=== PATIENT | female | born 1945 | race Caucasian/White ===

== ENCOUNTER → 2017-02-04 | Outpatient (CLI) | payer BC ==
[2016-02-03 08:58] VITALS: BP 163/81
[~2017-02-04] MED LIST: AMLO2.5T PO; LORA0.5T PO; METO100T2 PO; METO50TA2 PO; OMEP40CA5 PO
--- NOTE | 2017-02-04 11:40 | KCIC ---
PROCEDURE Bone mineral density exam HISTORY Postmenopausal, adult fracture COMPARISON None FINDINGS Bone mineral density exam utilizing DEXA was performed. Lumbar spine bone mineral density of 1.14 grams/centimeter squared corresponds with a T-score 0.6 and a Z-score 2.7. Left hip bone mineral density of 0.835 grams/centimeter squared corresponds with T-score-0.9 and a Z-score 0.6. World Health Organization criteria for bone mineral density interpretation: Normal T-score greater than or equal to-1.0, Osteopenia T score between-1.0 and-2.5, Osteoporosis T-score less than or equal to-2.5. IMPRESSION 1. There is normal bone density of the lumbar spine and the left hip. Electronically signed by: Selvin Mercado MD (Feb 04, 2017 11:38:27)
== END | disposition home or self-care (01) ==
LOC: KCIC DEXA 10:55
PROVIDERS: ATTEND Family Medicine
DX: Z13.820 Encounter for screening for osteoporosis (principal); N95.9 Unspecified menopausal and perimenopausal disorder; M85.88 Other specified disorders of bone density and structure, other site
CPT/HCPCS: 77080

== ENCOUNTER → 2017-04-21 | Outpatient (CLI) | payer BC ==
[2016-02-03 08:58] VITALS: BP 163/81
--- NOTE | 2017-04-21 14:21 | KCIC ---
EXAM: Chest, 2 views. HISTORY: Left lower lobe rales. COMPARISON: None. FINDINGS: Frontal and lateral views of the chest are obtained. There is suspected left basilar atelectasis. There is no infiltrate, effusion or pneumothorax. The heart is normal in size. IMPRESSION: No acute pulmonary finding. Electronically signed by: Dotty Hunter MD (04/21/2017 2:19 PM)
== END | disposition home or self-care (01) ==
LOC: KCIC 13:53
PROVIDERS: ATTEND Family Medicine
DX: R09.89 Other specified symptoms and signs involving the circulatory and respiratory systems (principal); Z87.891 Personal history of nicotine dependence
CPT/HCPCS: 71020

== ENCOUNTER → 2019-02-03 | Outpatient (CLI) | payer MEDICARE ==
[2016-02-03 08:58] VITALS: BP 163/81
[~2019-02-03] MED LIST changes: -AMLO2.5T PO; +AMLO2.5T5 PO; -METO100T2 PO; +METO100T7 PO; -METO50TA2 PO; +METO50TA6 PO
--- NOTE | 2019-02-03 13:47 | KCIC ---
EXAM: Chest, 2 views HISTORY: Cough. COMPARISON: 04/21/2017 FINDINGS: 2 views of the chest are obtained. There is no infiltrate, pleural effusion or pneumothorax. Heart is normal in size. IMPRESSION: No acute pulmonary finding. Electronically signed by: Dotty Hunter MD (02/03/2019 1:44 PM) [facility]
== END | disposition home or self-care (01) ==
LOC: KCIC 12:29
PROVIDERS: ATTEND Family Medicine
DX: R05 Cough (principal)
CPT/HCPCS: 71046

== ENCOUNTER → 2019-08-02 | Outpatient (CLI) | payer BC, OTHER ==
[2019-07-28 12:16] VITALS: BP 150/78
[~2019-08-02] MED LIST changes: +ATOR40TA59 PO; +CETI10TA16 PO; +GLUC100018 PO; +HYDR25TA PO; +OMEG1CAP6 PO; +PRAS10TA9 PO; +TURM1TAB PO
--- NOTE | 2019-08-02 13:10 | KCIC ---
EXAM: Bilateral digital screening mammogram with tomosynthesis. HISTORY: 74-year-old female presents for screening mammography. TECHNIQUE: Full-field digital craniocaudal and mediolateral oblique 2D and 3D tomosynthesis images of both breasts are obtained for evaluation. Computer aided detection with KudanD software version 9.3 was applied. COMPARISON: 07/27/2018 and 06/26/2016 BREAST PARENCHYMAL DENSITY: Level B - Scattered fibroglandular densities. FINDINGS: There is no new suspicious mass, microcalcification or region of architectural distortion. IMPRESSION: BI-RADS Category 2: Benign finding(s). RECOMMENDATION: Annual mammography is recommended. If your mammogram demonstrates that you have dense breast tissue, which could hide abnormalities, and if you have other risk factors for breast cancer that have been identified, you might benefit from supplemental screening tests that may be suggested by your ordering physician. Dense breast tissue, in and of itself, is a relatively common condition. This information is not provided to cause undue concern, but rather to raise your awareness and to promote discussion with your physician regarding the presence of other risk factors, in addition to dense breast tissue. A report of your mammography results will be sent to you and your physician. You should contact your physician if you have any questions or concerns regarding this report. Mammography is a sensitive method for finding small breast cancers, but it does not detect them all and is not a substitute for careful clinical examination. A negative mammogram does not negate a clinically suspicious finding and should not result in delay in biopsying a clinically suspicious abnormality. PQRS compliance statement - Patient information was entered into a reminder system with a target due date for the next mammogram. "Our facility is accredited by the [employer] Mammography Program." Electronically signed by: Dotty Hunter MD (08/02/2019 1:07 PM) [facility]
== END | disposition home or self-care (01) ==
LOC: KCIC MAMMO 11:34
PROVIDERS: ATTEND Family Medicine
DX: Z12.31 Encounter for screening mammogram for malignant neoplasm of breast (principal)
CPT/HCPCS: 77063; 77067

== ENCOUNTER 2019-08-06 10:44 | Inpatient (IN) | payer MEDICARE, OTHER ==
[~2019-08-06] VITALS: Ht 160 cm; Wt 99.8 kg
[~2019-08-06 10:44] MED LIST changes: +OMEP40CA45 PO; -OMEP40CA5 PO
[2019-08-06 11:23] LABS: BASO # 0.1 x10^3/uL (0.0-0.2); BASO % 1 % (0-3); EOS % 0 % (0-3); HEMATOCRIT 42.5 % (36.0-47.0); HEMOGLOBIN 14.4 g/dL (12.0-15.5); LYMPH # 1.2 x10^3/uL (1.0-4.8); LYMPH % 8 % (24-48); MEAN CORPUSCULAR HEMOGLOBIN 29 pg (25-35); MEAN CORPUSCULAR HGB CONC 34 g/dL (31-37); MEAN CORPUSCULAR VOLUME 86 fL (79-100); MONO # 0.9 x10^3/uL (0.0-1.1); MONO % 6 % (0-9); NEUT # 13.1 x10^3/uL (1.8-7.7); NEUT % 86 % (31-73); PLATELET COUNT 215 x10^3/uL (140-400); RED BLOOD COUNT 4.91 x10^6/uL (3.50-5.40); RED CELL DISTRIBUTION WIDTH 15.3 % (11.5-14.5); WHITE BLOOD COUNT 15.3 x10^3/uL (4.0-11.0)
[2019-08-06] MEDS ORDERED: ONDANSETRON PF 4 MG/2 ML VIAL. IV ONE (11:30)
[2019-08-06] MEDS ORDERED: IV NORMAL SALINE 1000ML BAG 1,000 ML IV SCH (11:30)
[2019-08-06 11:38] LABS: CALCIUM 9.1 mg/dL (8.5-10.1); CREATININE 1.6 mg/dL (0.6-1.0); GFR 31.7; POTASSIUM 3.4 mmol/L (3.5-5.1)
[2019-08-06 11:51] LABS: ALBUMIN 3.4 g/dL (3.4-5.0); ALBUMIN/GLOBULIN RATIO 0.9 (1.0-1.7); TOTAL BILIRUBIN 0.3 mg/dL (0.2-1.0); TOTAL PROTEIN 7.3 g/dL (6.4-8.2)
--- NOTE | 2019-08-06 11:57 | PHYS DOC ---
Past Medical History Past Medical History: CAD, GERD, Hypertension Additional Past Medical Histor: NSTEMI on 07/27/19 Past Surgical History: Other Additional Past Surgical Histo: Left ankle repair, cardiac stent Alcohol Use: None Drug Use: None Adult General Chief Complaint Chief Complaint: SHORTNESS OF BREATH HPI HPI Patient is a 74 year old female who presents with complaining of diarrhea and weakness. Patient states she was hospitalized 10 days ago and had stent placeme nt for NSTEMI without problem. Patient complaining of frequent episodes of diarrhea more than 15 times since yesterday as watery and nonbloody stool with greenish color and foul smelling with episodes of abdominal cramping during bowel movements. Patient complaining of nausea and one episode of vomiting since this morning and states during vomiting she felt shortness of breath. Patient denies chest pain, fever, sick contact, urinary symptom, recent use of antibiotic and history of C diff. Review of Systems Review of Systems Constitutional: Denies fever, reports chills [] Eyes: Denies change in visual acuity, redness, or eye pain [] HENT: Denies nasal congestion or sore throat [] Respiratory: Denies cough, reports shortness of breath [] Cardiovascular: No additional information not addressed in HPI [] GI: Reports abdominal pain, nausea, vomiting, diarrhea [] : Denies dysuria or hematuria [] Musculoskeletal: Denies back pain or joint pain [] Integument: Denies rash or skin lesions [] Neurologic: Denies headache, focal weakness or sensory changes [] Endocrine: Denies polyuria or polydipsia [] All other systems were reviewed and found to be within normal limits, except as documented in this note. Current Medications Current Medications Current Medications Medications (Trade) Dose Ordered Sig/Toribio Start Time Stop Time Status Last Admin Dose Admin Magnesium Sulfate 50 ml @ 25 mls/hr 1X ONCE 08/06/19 13:15 08/06/19 15:14 DC 08/06/19 13:30 25 MLS/HR Ondansetron HCl (Zofran) 4 mg 1X ONCE 08/06/19 11:30 08/06/19 11:31 DC 08/06/19 11:25 4 MG Sodium Chloride 1,000 ml @ 75 mls/hr [id number] 08/06/19 13:54 08/07/19 13:53 08/06/19 14:19 75 MLS/HR Allergies Allergies Allergies Coded Allergies Type Severity Reaction Last Updated Verified latex Allergy Unknown Rash 02/03/16 Yes Physical Exam Physical Exam Constitutional: Well developed, well nourished, mild distress, non-toxic appearance. [] HENT: Normocephalic, atraumatic, dry oral mucosa. Eyes: PERRLA, EOMI, conjunctiva normal, no discharge. [] Neck: Normal range of motion, no tenderness, supple, no stridor. [] Cardiovascular:Heart rate regular rhythm, no murmur [] Lungs & Thorax: Bilateral rales in bases of lung Abdomen: Bowel sounds normal, soft, no tenderness, no masses, no pulsatile masses. [] Skin: Warm, dry, no erythema, no rash. [] Back: No tenderness, no CVA tenderness. [] Extremities: No tenderness, no cyanosis, no clubbing, ROM intact, no edema. [] Neurologic: Alert and oriented X 3, no focal deficits noted. [] Psychologic: Affect normal, judgement normal, mood normal. [] Current Patient Data Vital Signs Vital Signs Date Time Temp Pulse Resp B/P (MAP) Pulse Ox O2 Delivery O2 Flow Rate FiO2 08/06/19 15:58 70 18 130/59 (82) Nasal Cannula 2.0 08/06/19 12:31 94 08/06/19 10:55 98.9 98.9 Lab Values Laboratory Tests Test 08/06/19 11:10 08/06/19 12:19 08/06/19 13:11 White Blood Count 15.3 x10^3/uL (4.0-11.0) H Red Blood Count 4.91 x10^6/uL (3.50-5.40) Hemoglobin 14.4 g/dL (12.0-15.5) Hematocrit 42.5 % (36.0-47.0) Mean Corpuscular Volume 86 fL (79-100) Mean Corpuscular Hemoglobin 29 pg (25-35) Mean Corpuscular Hemoglobin Concent 34 g/dL (31-37) Red Cell Distribution Width 15.3 % (11.5-14.5) H Platelet Count 215 x10^3/uL (140-400) Neutrophils (%) (Auto) 86 % (31-73) H Lymphocytes (%) (Auto) 8 % (24-48) L Monocytes (%) (Auto) 6 % (0-9) Eosinophils (%) (Auto) 0 % (0-3) Basophils (%) (Auto) 1 % (0-3) Neutrophils # (Auto) 13.1 x10^3/uL (1.8-7.7) H Lymphocytes # (Auto) 1.2 x10^3/uL (1.0-4.8) Monocytes # (Auto) 0.9 x10^3/uL (0.0-1.1) Eosinophils # (Auto) 0.0 x10^3/uL (0.0-0.7) Basophils # (Auto) 0.1 x10^3/uL (0.0-0.2) Segmented Neutrophils % 52 % (35-66) Band Neutrophils % 37 % (0-9) H Lymphocytes % 7 % (24-48) L Monocytes % 4 % (0-10) Platelet Estimate Adequate (ADEQUATE) Large Platelets Few Sodium Level 136 mmol/L (136-145) Potassium Level 3.4 mmol/L (3.5-5.1) L Chloride Level 99 mmol/L (98-107) Carbon Dioxide Level 22 mmol/L (21-32) Anion Gap 15 (6-14) H Blood Urea Nitrogen 20 mg/dL (7-20) Creatinine 1.6 mg/dL (0.6-1.0) H Estimated GFR (Cockcroft-Gault) 31.7 BUN/Creatinine Ratio 13 (6-20) Glucose Level 153 mg/dL (70-99) H Lactic Acid Level 2.0 mmol/L (0.4-2.0) Calcium Level 9.1 mg/dL (8.5-10.1) Magnesium Level 1.3 mg/dL (1.8-2.4) L Total Bilirubin 0.3 mg/dL (0.2-1.0) Aspartate Amino Transferase (AST) 31 U/L (15-37) Alanine Aminotransferase (ALT) 24 U/L (14-59) Alkaline Phosphatase 111 U/L (46-116) Creatine Kinase 369 U/L (26-192) H Troponin I Quantitative < 0.017 ng/mL (0.000-0.055) OY-Nfl-A-Type Natriuretic Peptide 1751 pg/mL (0-124) H Total Protein 7.3 g/dL (6.4-8.2) Albumin 3.4 g/dL (3.4-5.0) Albumin/Globulin Ratio 0.9 (1.0-1.7) L Lipase 104 U/L (73-393) Stool Occult Blood Positive (NEG) Urine Collection Type Unknown Urine Color Yellow Urine Clarity Cloudy Urine pH 6.0 Urine Specific [place] >=1.030 Urine Protein 100 mg/dL (NEG-TRACE) Urine Glucose (UA) 100 mg/dL (NEG) Urine Ketones (Stick) Trace mg/dL (NEG) Urine Blood Negative (NEG) Urine Nitrite Negative (NEG) Urine Bilirubin Small (NEG) Urine Urobilinogen Dipstick 1.0 mg/dL (0.2 mg/dL) Urine Leukocyte Esterase Trace (NEG) Urine RBC 1-2 /HPF (0-2) Urine WBC 5-10 /HPF (0-4) Urine Squamous Epithelial Cells Many /LPF Urine Bacteria Many /HPF (0-FEW) Urine Hyaline Casts Many /HPF Urine Mucus Marked /LPF Laboratory Tests 08/06/19 11:10 Laboratory Tests 08/06/19 11:10 EKG EKG EKG interpreted by me. EKG at 1058 showed normal sinus rhythm at rate of 80, prolonged GA interval at 226, left woody axis, Q wave in inferior leads, T-wave abnormalities in anterior leads, no acute ST and T-wave abnormalities.[] Radiology/Procedures Radiology/Procedures [] Course & Med Decision Making Course & Med Decision Making Pertinent Labs reviewed. (See chart for details) Evaluation of patient in ER showed 74-year-old male patient with history of hospitalization recently for non-STEMI and stent placement with complaining of diarrhea and nausea and vomiting and cramping abdominal pain. Patient had stable vital signs without fever. Patient had white count of 15,000 and magnesium of 1.3 and treated with IV magnesium.Patient requiring admission for further evaluation and treatment. Discussed with Dr. Reed Mukherjee who is in agreement with admission. Discussed findings and plan with patient and family, who acknowledge understanding and agreement. Dragon Disclaimer Dragon Disclaimer This electronic medical record was generated, in whole or in part, using a voice recognition dictation system. Departure Departure Impression: Primary Impression: Diarrhea Additional Impressions: Hypomagnesemia Leukocytosis Acute renal insufficiency CHF (congestive heart failure) Disposition: ADMITTED INPATIENT (@1348) Admitting Physician: Reed Mukherjee (accepted admission at 1347) Condition: IMPROVED Referrals: REED MUKHERJEE MD (PCP) Problem Qualifiers Primary Impression: Diarrhea Diarrhea type: unspecified type Qualified Codes: R19.7 - Diarrhea, unspecified Additional Impressions: Leukocytosis Leukocytosis type: unspecified Qualified Codes: D72.829 - Elevated white blood cell count, unspecified CHF (congestive heart failure) Heart failure type: unspecified Heart failure chronicity: unspecified Qualified Codes: I50.9 - Heart failure, unspecified WENDY MONTOYA MD Aug 06, 2019 11:57
[2019-08-06 12:10] LABS: % BANDS 37 % (0-9); % LYMPHS 7 % (24-48); % MONOS 4 % (0-10); % SEGS 52 % (35-66); PLT ESTIMATE ADEQUATE (ADEQUATE)
--- NOTE | 2019-08-06 12:22 | EKG ---
[facility] [address] [place] [address] Test Date: 2019-08-06 Test Time: 10:58:31 Pat Name: RACHEL MEZA Department: Room: Gender: F [employer] Specialist: : [id number] Requested By: WENDY MONTOYA Order Number: [id number] Reading MD: Riccardo Mesa MD Measurements Intervals [place] Rate: 79 P: 22 FL: 226 QRS: -23 QRSD: 82 T: 51 QT: 394 QTc: 458 Interpretive Statements SINUS RHYTHM PROLONGED FL INTERVAL NON-SPECIFIC ST/T CHANGES Electronically Signed On 08-20-2019 21:20:11 CDT by Riccardo Mesa MD
[2019-08-06 12:48] LABS: FECAL OB PT POSITIVE (NEG)
[2019-08-06] MEDS ORDERED: MAGNESIUM SULFATE 2GM 50 ML IV ONE (13:15)
[2019-08-06 13:19] LABS: BILIRUBIN,URINE SMALL (NEG); CLARITY,URINE CLOUDY; NITRITE,URINE NEGATIVE (NEG); PROTEIN,URINE 100 mg/dL (NEG-TRACE)
[2019-08-06 13:21] LABS: COLOR,URINE YELLOW
[2019-08-06 13:22] LABS: BACTERIA,URINE MANY /HPF (0-FEW); HYALINE CASTS, URINE MANY /HPF; SQUAMOUS EPITHELIAL CELL,UR MANY /LPF
[2019-08-06] MEDS: IV NORMAL SALINE 1000ML BAG 1,000 ML IV SCH ×2 (14:19→19:43)
[2019-08-06 16:40] VITALS: BP 126/47
--- NOTE | 2019-08-06 17:00 | NUR ---
The patient, RACHEL MEZA, 74 y/o, F admitted by STANLEY MUKHERJEE MD, was given written information regarding hospital policies, unit procedures and contact persons. Completed admission assessment. Pt stated she would keep all belongings at bedside including clothing, purse and cell phone. IVF infusing. SCD's placed. Assisted pt to bathroom. Meal tray ordered. Call light within reach. Will return to monitor.
[2019-08-06] MEDS ORDERED: IV NORMAL SALINE 1000ML BAG 1,000 ML IV ONE (18:30)
--- NOTE | 2019-08-06 18:47 | NUR ---
Paged Dr. Grande. Lactic increased to 3.2. Initiated second NS bolus. Dr. Grande did not want to start any antibiotics until he had results from c.diff test. Viry INTERNATIONAL EDITORIAL PRODUCER placed orders for blood cultures and lactic to be redrawn. Updated pt of POC. Call light within reach. Will continue to monitor.
[2019-08-06 19:00] VITALS: BP 139/64
[2019-08-06] MEDS: METOPROLOL TART IMMED RELEASE 50 MG TABLET. PO SCH (21:10)
[2019-08-06] MEDS: ATORVASTATIN CALCIUM 40 MG TABLET. PO SCH (21:10)
[2019-08-06] MEDS: LORazepam 0.5 MG TABLET PO SCH (22:17)
[2019-08-06 23:00] VITALS: BP 132/57
[2019-08-07 03:00] VITALS: BP 124/57
[2019-08-07 07:30] VITALS: BP 115/56
--- NOTE | 2019-08-07 08:18 | PDOC ---
Provider Note Provider Note [id number] STANLEY MUKHERJEE MD Aug 07, 2019 08:17
[2019-08-07] MEDS: PRASUGREL 10 MG TABLET. PO SCH (08:23)
[2019-08-07] MEDS: amLODIPine BESYLATE 5 MG TABLET PO SCH (08:24)
[2019-08-07] MEDS: METOPROLOL TART IMMED RELEASE 50 MG TABLET. PO SCH ×2 (08:25→19:51)
[2019-08-07] MEDS: PANTOPRAZOLE 40 MG TABLET.DR. PO SCH (08:25)
--- NOTE | 2019-08-07 08:29 | HP ---
ADMIT DATE: CHIEF COMPLAINT: Diarrhea and weakness. HISTORY OF PRESENT ILLNESS: A 74-year-old white female recently discharged after a single coronary artery stent placement for a aiv-CO-bcennhhl PA, has had good results since then. New meds include aspirin and Effient and metoprolol, but no recent antibiotics or travel exposure to new foods or ill people. She developed nonbloody diarrhea about 36 hours or so prior to admission and became increasingly worse over the next 12-24 hours. She had a low-grade temperature or mild leukocytosis with left shift and heme-positive stool, was admitted with C. diff toxin pending at this time. No recent travel. No well water exposure or other obvious sources of diarrhea are apparent and her is not ill. MEDICATIONS: Listed per the chart. New meds are atorvastatin, Effient, aspirin and metoprolol. She has a history of mild hives, chronic anxiety and insomnia. SOCIAL HISTORY: Nonsmoker, nondrinker. FAMILY HISTORY: Unremarkable. REVIEW OF SYSTEMS: No other known problems. OBJECTIVE: ENT: All within normal limits. NECK: Revealed no masses, nodes or bruits. LUNGS: Clear, without tachypnea. CARDIOVASCULAR: Regular rate. No murmur or tachycardia. ABDOMEN: Soft, benign, nontender, no masses, megaly or nodes. EXTREMITIES: Good pedal and radial pulses. No joint or skin lesions or nail bed findings. NEUROLOGIC: Physiologic and nonfocal, oriented x 4. GENITOURINARY AND RECTAL: Deferred. Stool was heme positive in the ER. ASSESSMENT: Acute onset of diarrhea, heme positive in nature, associated with mild leukocytosis and left shift. Source of this is unclear. Certainly must include C. diff toxin colitis, though we do not know that she has had any recent antibiotics lately. There has been no recent travel, exposure to illness, new foods. PLAN: Stool culture and Giardia antigen. We will start metronidazole pending C. difficile toxin results. IV fluids, potassium support and continue her cardiac meds. STANLEY MUKHERJEE MD DR: CRUZ/kleber JOB#: [id number] / [id number]
[2019-08-07] MEDS: POTASSIUM CL 20MEQ D5-0.45NACL 1,000 ML IV SCH ×2 (08:51→19:52)
[2019-08-07] MEDS ORDERED: NON FORMULARY ITEM (Glucosamine Sulfate 2KCL (Glucosamine) 1,000 MG) PO SCH (09:00)
[2019-08-07] MEDS ORDERED: CETIRIZINE HCL 10 MG TABLET. PO SCH (09:00)
[2019-08-07] MEDS ORDERED: ASPIRIN 325 MG TABLET PO SCH (09:00)
[2019-08-07] MEDS ORDERED: [UNRECOGNIZED DRUG - OTHER] PO SCH (09:00)
[2019-08-07] MEDS ORDERED: ATORVASTATIN CALCIUM 40 MG TABLET. PO SCH (09:00)
[2019-08-07] MEDS: ASPIRIN CHEWABLE 81 MG TABLET. PO SCH (10:14)
[2019-08-07 11:37] VITALS: BP 105/46
--- NOTE | 2019-08-07 15:06 | NUR ---
SW following pt for dc planning. Chart reviewed. Pt lives at home with spouse and admitted for diarrhea hypomagnesemia. PT recommends home with assistance/when goals met. Will continue to follow pending dc needs.
[2019-08-07 15:35] VITALS: BP 128/57
[2019-08-07] MEDS: ATORVASTATIN CALCIUM 40 MG TABLET. PO SCH (19:51)
[2019-08-07 19:57] VITALS: BP 130/51
[2019-08-07] MEDS ORDERED: hydrOXYzine 25 MG TABLET PO SCH (21:00)
[2019-08-07 23:59] VITALS: BP 124/57
[2019-08-08 04:47] LABS: BASO % 1 % (0-3); EOS # 0.1 x10^3/uL (0.0-0.7); EOS % 1 % (0-3); HEMATOCRIT 33.7 % (36.0-47.0); HEMOGLOBIN 11.6 g/dL (12.0-15.5); LYMPH % 26 % (24-48); MEAN CORPUSCULAR HEMOGLOBIN 30 pg (25-35); MEAN CORPUSCULAR HGB CONC 34 g/dL (31-37); MEAN CORPUSCULAR VOLUME 87 fL (79-100); MONO # 1.2 x10^3/uL (0.0-1.1); MONO % 17 % (0-9); NEUT # 4.2 x10^3/uL (1.8-7.7); NEUT % 56 % (31-73); PLATELET COUNT 193 x10^3/uL (140-400); RED BLOOD COUNT 3.88 x10^6/uL (3.50-5.40); RED CELL DISTRIBUTION WIDTH 15.4 % (11.5-14.5); WHITE BLOOD COUNT 7.5 x10^3/uL (4.0-11.0)
[2019-08-08] MEDS: POTASSIUM CL 20MEQ D5-0.45NACL 1,000 ML IV SCH ×2 (05:12→19:43)
[2019-08-08 07:55] VITALS: BP 122/56
[2019-08-08] MEDS ORDERED: ASPIRIN CHEWABLE 81 MG TABLET. PO SCH (08:00)
--- NOTE | 2019-08-08 08:15 | PDOC ---
Provider Note Provider Note no temp or pain but still lots of nonbloody diarrhea- heme + on admit- c diff neg , cult pending- will dc flagyl and add cipro to cover shig/salmonella/campylobacter pending culture- adv diet- NEEDS TO BE IN HOSPITAL until clear dx is made, at trisk re recent NV/stent STANLEY MUKHERJEE MD Aug 08, 2019 08:15
[2019-08-08] MEDS: ASPIRIN CHEWABLE 81 MG TABLET. PO SCH (08:58)
[2019-08-08] MEDS: CIPROFLOXACIN HCL 250 MG TABLET. PO SCH ×2 (08:59→21:05)
[2019-08-08] MEDS: METOPROLOL TART IMMED RELEASE 50 MG TABLET. PO SCH ×2 (08:59→21:05)
[2019-08-08] MEDS: PANTOPRAZOLE 40 MG TABLET.DR. PO SCH (08:59)
[2019-08-08] MEDS: PRASUGREL 10 MG TABLET. PO SCH (08:59)
[2019-08-08] MEDS ORDERED: OMEGA-3 FATTY ACIDS/FISH OIL 1,000 MG CAPSULE. PO SCH (09:00)
[2019-08-08] MEDS: amLODIPine BESYLATE 5 MG TABLET PO SCH (09:01)
[2019-08-08 11:26] VITALS: BP 97/65
[2019-08-08 15:27] VITALS: BP 107/58
--- NOTE | 2019-08-08 15:42 | NUR ---
Pt transferred to room 567. Report called to SUZY Huddleston. Pt transported via wheelchair. All belongings with patient at the time of transfer.
--- NOTE | 2019-08-08 18:26 | NUR ---
Report received from SUZY Way on 6S at approx 1525. Pt arrived on unit at approx 1545. Pt oriented to room and call light. Pt given sprite, a new set of socks, and a beside commode. Pt comfortable at this time. Will continue to monitor.
[2019-08-08 19:00] VITALS: BP 115/69
[2019-08-08] MEDS: ATORVASTATIN CALCIUM 40 MG TABLET. PO SCH (21:05)
[2019-08-08] MEDS: LORazepam 0.5 MG TABLET PO SCH (21:06)
[2019-08-08 23:00] VITALS: BP 139/72
[2019-08-09 02:42] VITALS: BP 148/70
[2019-08-09 05:26] LABS: CALCIUM 8.4 mg/dL (8.5-10.1); GFR 54.5; POTASSIUM 3.5 mmol/L (3.5-5.1)
[2019-08-09 07:00] VITALS: BP 132/93
[2019-08-09] MEDS: CIPROFLOXACIN HCL 250 MG TABLET. PO SCH (08:07)
[2019-08-09] MEDS: PANTOPRAZOLE 40 MG TABLET.DR. PO SCH (08:07)
[2019-08-09] MEDS: PRASUGREL 10 MG TABLET. PO SCH (08:07)
[2019-08-09 08:08] VITALS: BP 148/70
[2019-08-09] MEDS: amLODIPine BESYLATE 5 MG TABLET PO SCH (08:08)
[2019-08-09] MEDS: ASPIRIN CHEWABLE 81 MG TABLET. PO SCH (08:08)
[2019-08-09] MEDS: METOPROLOL TART IMMED RELEASE 50 MG TABLET. PO SCH (08:08)
--- NOTE | 2019-08-09 08:10 | PDOC ---
Provider Note Provider Note [id number] STANLEY MUKHERJEE MD Aug 09, 2019 08:10
--- NOTE | 2019-08-09 10:34 | NUR ---
PT DISCHARGED HOME WITH . MEDS AND FOLLOW UP REVIEWED. PT VOICED UNDERSTANDING. IV REMOVED, CATH INTACT. PT STABLE UPON DC.
--- NOTE | 2019-08-09 14:00 | DS ---
DATE OF DISCHARGE: 08/09/2019 HOSPITAL SUMMARY: A 74-year-old white female who came in with abrupt onset of persistent diarrhea over the last 3-4 days. Sometimes it is usually bloody. Her urine is clear. Chemistry profile showed an initial creatinine of 1.6 and GFR was 31 and that improved to 1.0 and 54 with hydration. Initial leukocytosis of 15,000, resolved and her hemoglobin stayed stable around 12. C. diff toxin and Giardia lamblia studies of the stools are negative and stool was positive for occult blood and cultures are pending at this time. She was treated initially with IV Flagyl as possible C. diff colitis and then switched to oral Cipro when the C. diff was negative. Cultures for possible Shigella and salmonella are pending at this time, but clinically she is improving with less diarrhea, no more bleeding and feeling better and comfortable to be followed as an outpatient. FINAL DIAGNOSES: 1. Acute bacterial enteritis, etiology undetermined. 2. Acute kidney injury, improved. 3. Chronic kidney disease 3, stable. OPERATIONS, PROCEDURES, COMPLICATIONS, CONSULTATIONS: None. DISPOSITION: She will take 3 more days of Cipro 500 mg twice a day until cultures are available to direct further decisions. Home meds all remain the same including aspirin and prasugrel. She is taking for recent coronary stents. Lactose-free diet, otherwise regular diet. Activity as tolerated. Office followup in 1 week. STANLEY MUKHERJEE MD DR: CRUZ/kleber JOB#: [id number] / [id number]
== END 2019-08-09 09:30 | disposition home or self-care (01) | DRG 371 ==
LOC: ER 10:44 → 6 SOUTH 13:16 → 5 SOUTH 08-08 15:49
PROVIDERS: ADMIT Family Medicine; ATTEND Family Medicine
DX: A04.9 Bacterial intestinal infection, unspecified (principal); N17.0 Acute kidney failure with tubular necrosis; I13.0 Hypertensive heart and chronic kidney disease with heart failure and stage 1 through stage 4 chronic kidney disease, or unspecified chronic kidney disease; E83.42 Hypomagnesemia; I25.10 Atherosclerotic heart disease of native coronary artery without angina pectoris; I25.2 Old myocardial infarction; I50.9 Heart failure, unspecified; K21.9 Gastro-esophageal reflux disease without esophagitis; N18.3 Chronic kidney disease, stage 3 (moderate); Z95.5 Presence of coronary angioplasty implant and graft; Z91.040 Latex allergy status
CPT/HCPCS: 36415; 80048; 80053; 81001; 82274; 82550; 83605; 83690; 83735; 83880; 84484; 85007; 85025; 87040; 87045; 87086; 87328; 87493; 93005; 96374; J2405; J3475; J3490; J7030; 97110; 97530; 97535; 99285-25; G0378

== ENCOUNTER 2020-04-16 03:09 | Emergency (ER) | payer MEDICARE ==
[~2020-04-16] VITALS: Ht 160 cm; Wt 80.0 kg
[2020-04-16] MEDS ORDERED: MORPHINE SULFATE 2 MG/ML VIAL. IV/SQ PRN (03:30)
[2020-04-16 03:40] LABS: BASO # 0.1 x10^3/uL (0.0-0.2); BASO % 1 % (0-3); EOS # 0.3 x10^3/uL (0.0-0.7); EOS % 3 % (0-3); HEMATOCRIT 42.6 % (36.0-47.0); LYMPH % 33 % (24-48); MEAN CORPUSCULAR HEMOGLOBIN 29 pg (25-35); MEAN CORPUSCULAR HGB CONC 33 g/dL (31-37); MEAN CORPUSCULAR VOLUME 87 fL (79-100); MONO # 1.4 x10^3/uL (0.0-1.1); MONO % 12 % (0-9); NEUT # 6.1 x10^3/uL (1.8-7.7); NEUT % 51 % (31-73); PLATELET COUNT 238 x10^3/uL (140-400); RED BLOOD COUNT 4.89 x10^6/uL (3.50-5.40); RED CELL DISTRIBUTION WIDTH 15.5 % (11.5-14.5); WHITE BLOOD COUNT 11.9 x10^3/uL (4.0-11.0)
[2020-04-16 03:50] LABS: CALCIUM 9.2 mg/dL (8.5-10.1); CREATININE 1.1 mg/dL (0.6-1.0); GFR 48.8
[2020-04-16 03:56] LABS: ALBUMIN 3.7 g/dL (3.4-5.0); TOTAL BILIRUBIN 0.2 mg/dL (0.2-1.0); TOTAL PROTEIN 7.4 g/dL (6.4-8.2)
[2020-04-16] MEDS ORDERED: ASPIRIN CHEWABLE 81 MG TABLET. PO ONE (04:00)
[2020-04-16] MEDS ORDERED: ONDANSETRON PF 4 MG/2 ML VIAL. IVP ONE (04:00)
[2020-04-16] MEDS ORDERED: IV NORMAL SALINE 1000ML BAG 1,000 ML IV SCH (04:00)
[2020-04-16 04:30] VITALS: BP 158/72
--- NOTE | 2020-04-16 04:49 | PHYS DOC ---
Past Medical History Past Medical History: CAD, GERD, Hypertension Additional Past Medical Histor: NSTEMI on 07/27/19 Past Surgical History: Other Additional Past Surgical Histo: Left ankle repair, cardiac stent Smoking Status: Former Smoker Alcohol Use: None Drug Use: None General Adult EDM: Chief Complaint: CHEST PAIN HPI: HPI: Patient is a 74 year old female who presents with complaint of left-sided back pain that started yesterday after lifting some boxes. She states that a few hours ago she started to have some discomfort around her left breast that she describes as soreness. She rates pain at a 5 out of 10 and states the pain is worsened with certain movements and with deep breathing. She denies any nausea, vomiting or diaphoresis. She also denies any cough or fever. [] Review of Systems: Review of Systems: Constitutional: Denies fever or chills. [] Respiratory: Denies cough or shortness of breath. [] Cardiovascular: Complains of chest wall pain. [] GI: Denies abdominal pain, nausea, vomiting or diarrhea. [] Musculoskeletal: Complains of left-sided midthoracic back pain. [] Integument: Denies rash. [] Neurologic: Denies headache, focal weakness or sensory changes. [] A full 10 point review of systems has been reviewed and is otherwise negative. Heart Score: HEART Score for Chest Pain: HEART Score for Chest Pain Response (Comments) Value History Slighlty/Non-Suspicious 0 ECG Normal 0 Age > 65 2 Risk Factors 1 or 2 Risk Factors 1 Troponin < Normal Limit 0 Total 3 Risk Factors: Risk Factors: DM, Current or recent (<one month) smoker, HTN, HLP, family history of CAD, obesity. Risk Scores: Score 0 - 3: 2.5% MACE over next 6 weeks - Discharge Home Score 4 - 6: 20.3% MACE over next 6 weeks - Admit for Clinical Observation Score 7 - 10: 72.7% MACE over next 6 weeks - Early Invasive Strategies Current Medications: Current Medications Medications (Trade) Dose Ordered Sig/Toribio Start Time Stop Time Status Last Admin Dose Admin Aspirin (Aspirin Chewable) 324 mg 1X ONCE 04/16/20 04:00 04/16/20 04:01 DC 04/16/20 03:58 324 MG Morphine Sulfate (Morphine Sulfate) 2 mg PRN Q15MIN PRN 04/16/20 03:30 04/17/20 03:29 Ondansetron HCl (Zofran) 4 mg 1X ONCE 04/16/20 04:00 04/16/20 04:01 DC 04/16/20 03:58 4 MG Sodium Chloride 1,000 ml @ 1,000 mls/hr Q1H 04/16/20 04:00 04/16/20 04:59 04/16/20 03:58 1,000 MLS/HR Allergies: Allergies: Allergies Coded Allergies Type Severity Reaction Last Updated Verified latex Allergy Intermediate Rash 08/06/19 Yes Physical Exam: PE: Constitutional: Well developed, well nourished, no acute distress, non-toxic appearance. [] HENT: Normocephalic, atraumatic, bilateral external ears normal, oropharynx moist, no oral exudates, nose normal. [] Eyes: PERRLA, EOMI, conjunctiva normal, no discharge. [] Neck: Normal range of motion, no tenderness, supple, no stridor. [] Cardiovascular: Regular rate and rhythm [] Lungs & Thorax: Bilateral breath sounds clear to auscultation [] Abdomen: Bowel sounds normal, soft, no tenderness. [] Skin: Warm, dry, no erythema, no rash. [] Back: There is tenderness to palpation in the area of T7 and 9 on the left that reproduces pain. [] Extremities: No tenderness, no cyanosis, no clubbing, ROM intact. [] Neurologic: Alert and oriented X 3, no focal deficits noted. [] Current Patient Data: Labs: Laboratory Tests Test 04/16/20 03:30 White Blood Count 11.9 x10^3/uL (4.0-11.0) H Red Blood Count 4.89 x10^6/uL (3.50-5.40) Hemoglobin 14.0 g/dL (12.0-15.5) Hematocrit 42.6 % (36.0-47.0) Mean Corpuscular Volume 87 fL (79-100) Mean Corpuscular Hemoglobin 29 pg (25-35) Mean Corpuscular Hemoglobin Concent 33 g/dL (31-37) Red Cell Distribution Width 15.5 % (11.5-14.5) H Platelet Count 238 x10^3/uL (140-400) Neutrophils (%) (Auto) 51 % (31-73) Lymphocytes (%) (Auto) 33 % (24-48) Monocytes (%) (Auto) 12 % (0-9) H Eosinophils (%) (Auto) 3 % (0-3) Basophils (%) (Auto) 1 % (0-3) Neutrophils # (Auto) 6.1 x10^3/uL (1.8-7.7) Lymphocytes # (Auto) 4.0 x10^3/uL (1.0-4.8) Monocytes # (Auto) 1.4 x10^3/uL (0.0-1.1) H Eosinophils # (Auto) 0.3 x10^3/uL (0.0-0.7) Basophils # (Auto) 0.1 x10^3/uL (0.0-0.2) Sodium Level 140 mmol/L (136-145) Potassium Level 4.0 mmol/L (3.5-5.1) Chloride Level 105 mmol/L (98-107) Carbon Dioxide Level 27 mmol/L (21-32) Anion Gap 8 (6-14) Blood Urea Nitrogen 28 mg/dL (7-20) H Creatinine 1.1 mg/dL (0.6-1.0) H Estimated GFR (Cockcroft-Gault) 48.8 BUN/Creatinine Ratio 25 (6-20) H Glucose Level 121 mg/dL (70-99) H Calcium Level 9.2 mg/dL (8.5-10.1) Magnesium Level 2.0 mg/dL (1.8-2.4) Total Bilirubin 0.2 mg/dL (0.2-1.0) Aspartate Amino Transferase (AST) 17 U/L (15-37) Alanine Aminotransferase (ALT) 21 U/L (14-59) Alkaline Phosphatase 108 U/L (46-116) Troponin I Quantitative < 0.017 ng/mL (0.000-0.055) BW-Sit-B-Type Natriuretic Peptide 249 pg/mL (0-124) H Total Protein 7.4 g/dL (6.4-8.2) Albumin 3.7 g/dL (3.4-5.0) Albumin/Globulin Ratio 1.0 (1.0-1.7) Lipase 173 U/L (73-393) Laboratory Tests 04/16/20 03:30 Laboratory Tests 04/16/20 03:30 Vital Signs: Vital Signs Date Time Temp Pulse Resp B/P (MAP) Pulse Ox O2 Delivery O2 Flow Rate FiO2 04/16/20 03:10 97.5 65 14 216/90 (132) 98 Room Air 97.5 EKG: EKG: [] Radiology/Procedures: Radiology/Procedures: [] Course & Med Decision Making: Course & Med Decision Making Pertinent Labs and Imaging studies reviewed. (See chart for details) [] Dragon Disclaimer: Dragon Disclaimer: This electronic medical record was generated, in whole or in part, using a voice recognition dictation system. Departure Departure Impression: Primary Impression: Atypical chest pain Disposition: HOME, SELF-CARE Condition: STABLE Referrals: STANLEY MUKHERJEE MD (PCP) Patient Instructions: Chest Pain (Nonspecific) GIOVANNA BOWMAN Jr. DO April 16, 2020 04:49
--- NOTE | 2020-04-16 04:58 | RAD ---
EXAM: CHEST ONE VIEW. HISTORY: Chest pain. COMPARISON: 07/26/2019. FINDINGS: A frontal view of the chest is obtained. The right hemidiaphragm is mildly elevated. There are no confluent infiltrates. There is no pneumothorax or pleural effusion. The heart is not enlarged. IMPRESSION: 1. No confluent infiltrates. Electronically signed by: Amber Horta MD (04/16/2020 4:55 AM) [facility]
--- NOTE | 2020-04-16 05:05 | EKG ---
[facility] [address] [place] [address] Test Date: 2020-04-16 Test Time: 03:21:13 Pat Name: RACHEL MEZA Department: Room: Gender: F Databases Computer Consultant: : 1945 Requested By: GIOVANNA BOWMAN Order Number: [id number] Reading MD: Az Billingsley Measurements Intervals Pfeifer Rate: 66 P: -6 WV: 260 QRS: 5 QRSD: 80 T: 27 QT: 406 QTc: 427 Interpretive Statements SINUS RHYTHM PROLONGED WV INTERVAL Electronically Signed On 04-16-2020 15:52:44 CDT by Az Billingsley
== END 2020-04-16 05:03 | disposition home or self-care (01) ==
LOC: ER 03:09
DX: R07.89 Other chest pain (principal); M54.6 Pain in thoracic spine; I10 Essential (primary) hypertension; K21.9 Gastro-esophageal reflux disease without esophagitis; I25.10 Atherosclerotic heart disease of native coronary artery without angina pectoris; Z87.891 Personal history of nicotine dependence; Z95.5 Presence of coronary angioplasty implant and graft; Z91.040 Latex allergy status
CPT/HCPCS: 36415; 71045; 80053; 83690; 83735; 83880; 84484; 85025; 93005; 96374; 99285; J2405; J7030

== ENCOUNTER 2020-07-21 12:55 | Emergency (ER) | payer MEDICARE ==
[~2020-07-21] VITALS: Ht 160 cm; Wt 80.0 kg
[2020-07-21 13:00] VITALS: BP 167/79
--- NOTE | 2020-07-21 14:04 | PHYS DOC ---
Past Medical History Past Medical History: CAD, GERD, Hypertension Additional Past Medical Histor: NSTEMI on 07/27/19 Past Surgical History: Other Additional Past Surgical Histo: Left ankle repair, cardiac stent Smoking Status: Former Smoker Alcohol Use: None Drug Use: None General Adult EDM: Chief Complaint: UPPER EXTREMITY PAIN HPI: HPI: Patient is a 75 year old Female who presents with was standing near her in the doorway when he was using his walker and he was starting to fall backward. She states that she used her right arm to brace against the door frame and use her other arm to push him towards the bed so he would not fall on the floor. She states when she did this she felt a lateral cracking or tearing feeling right in the elbow area of that right arm. She has 2+ swelling lump that is tender with palpation in the lateral elbow part of her arm. There does not any bruising or skin color change. She denies any numbness or tingling, coolness of the extremity, focal weakness. 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 She can bend fully at all joints of the arm. She can wiggle all fingers. She has full range of motion's. Cap refill less than 2 seconds. Radial pulses strong and present. No focal weakness. She rates her pain a aching nonradiating 5 out of 10. Which is worse with flexing of the elbow. Review of Systems: Review of Systems: Constitutional: Denies fever or chills. [] Eyes: Denies change in visual acuity. [] HENT: Denies nasal congestion or sore throat. [] Respiratory: Denies cough or shortness of breath. [] Cardiovascular: Denies chest pain or edema. [] GI: Denies abdominal pain, nausea, vomiting, bloody stools or diarrhea. [] : Denies dysuria. [] Musculoskeletal: Denies back pain. Right lateral elbow joint pain. [] Integument: Denies rash. Lateral elbow lump. [] Neurologic: Denies headache, focal weakness or sensory changes. [] Endocrine: Denies polyuria or polydipsia. [] Lymphatic: Denies swollen glands. [] Psychiatric: Denies depression or anxiety. [] Heart Score: Risk Factors: Risk Factors: DM, Current or recent (<one month) smoker, HTN, HLP, family history of CAD, obesity. Risk Scores: Score 0 - 3: 2.5% MACE over next 6 weeks - Discharge Home Score 4 - 6: 20.3% MACE over next 6 weeks - Admit for Clinical Observation Score 7 - 10: 72.7% MACE over next 6 weeks - Early Invasive Strategies Allergies: Allergies: Allergies Coded Allergies Type Severity Reaction Last Updated Verified latex Allergy Intermediate Rash 08/06/19 Yes Physical Exam: PE: Constitutional: Well developed, well nourished, no acute distress, non-toxic appearance. [] HENT: Normocephalic, atraumatic, bilateral external ears normal, oropharynx moist, no oral exudates, nose normal. [] Eyes: PERRLA, EOMI, conjunctiva normal, no discharge. [] Neck: Normal range of motion, no tenderness, supple, no stridor. [] Cardiovascular:Heart rate regular rhythm, no murmur [] Lungs & Thorax: Bilateral breath sounds clear to auscultation [] Abdomen: Bowel sounds normal, soft, no tenderness, no masses, no pulsatile masses. [] Skin: Warm, dry, no erythema, no rash. Right lateral elbow bump. [] Back: No tenderness, no CVA tenderness. [] Extremities: Right lateral tenderness, no cyanosis, no clubbing, ROM intact, right lateral elbow 2+ edema. [] Neurologic: Alert and oriented X 3, normal motor function, normal sensory function, no focal deficits noted. [] Psychologic: Affect normal, judgement normal, mood normal. [] Current Patient Data: Vital Signs: Vital Signs Date Time Temp Pulse Resp B/P (MAP) Pulse Ox O2 Delivery O2 Flow Rate FiO2 07/21/20 13:00 98.8 66 16 167/79 (108) 97 Room Air 98.8 EKG: EKG: [] Radiology/Procedures: Radiology/Procedures: [] Impression: [facility] [address] [place], [place] [id number] IMAGING REPORT Signed PATIENT: RACHEL MEZA ACCOUNT: [id number] : 1945 LOCATION: ER AGE: 75 SEX: F EXAM STATUS: REG ER ORD. PHYSICIAN: CARLOS KNOTT APRN REASON: PAIN PROCEDURE: ELBOW RIGHT 3V Examination: 3 views of the right elbow HISTORY: History of right hip pain COMPARISON: None available Findings/ impression: The alignment of the elbow joint grossly appears unremarkable. Moderate soft tissue swelling identified medial to the elbow joint could be hematoma or edema or infection. Correlate clinically. Electronically signed by: Nando Espana MD (07/21/2020 3:02 PM) [id number] DICTATED and SIGNED BY: NANDO ESPANA MD DATE: 07/21/20 1502 Course & Med Decision Making: Course & Med Decision Making Pertinent Labs and Imaging studies reviewed. (See chart for details) See HPI. Alert and oriented x4. Ambulatory with a steady gait. Speaks in full clear sentences. Skin pink warm and dry. Patient is placed in an arm sling. Patient to follow-up with orthopedic as soon as possible. [] Dragon Disclaimer: Dragon Disclaimer: This electronic medical record was generated, in whole or in part, using a voice recognition dictation system. Departure Departure Impression: Primary Impression: Elbow injury Qualified Codes: S59.901A - Unspecified injury of right elbow, initial encounter Disposition: HOME, SELF-CARE Condition: STABLE Referrals: STANLEY MUKHERJEE MD (PCP) BRANDIE ALVARADO MD Patient Instructions: Elbow Contusion, Ligament Sprain Additional Instructions: Follow-up with orthopedic as soon as possible. Take ibuprofen or Tylenol and use ice for your pain. Justicifation of Admission Dx: Justifications for Admission: Justification of Admission Dx: N/A CALROS KNOTT APRN Jul 21, 2020 14:04
--- NOTE | 2020-07-21 15:05 | RAD ---
Examination: 3 views of the right elbow HISTORY: History of right hip pain COMPARISON: None available Findings/ impression: The alignment of the elbow joint grossly appears unremarkable. Moderate soft tissue swelling identified medial to the elbow joint could be hematoma or edema or infection. Correlate clinically. Electronically signed by: Nando Espana MD (07/21/2020 3:02 PM) [id number]
== END 2020-07-21 15:45 | disposition home or self-care (01) ==
LOC: ER 12:55
DX: S59.801A Other specified injuries of right elbow, initial encounter (principal); R60.0 Localized edema; I11.9 Hypertensive heart disease without heart failure; K21.9 Gastro-esophageal reflux disease without esophagitis; Z87.891 Personal history of nicotine dependence; Z98.890 Other specified postprocedural states; Z91.040 Latex allergy status; W18.39XA Other fall on same level, initial encounter; Y93.89 Activity, other specified; Y92.89 Other specified places as the place of occurrence of the external cause; Y99.8 Other external cause status
CPT/HCPCS: 73080; 99283; A4565

== ENCOUNTER → 2020-09-09 | Outpatient (CLI) | payer MEDICARE ==
--- NOTE | 2020-09-09 19:22 | KCIC ---
BILATERAL SCREENING MAMMOGRAM History: Routine screening. Comparison: Bilateral mammogram August 02, 2019. Technique: Routine bilateral digital mammogram views were obtained. Findings: Breast Tissue Density B : There are scattered areas of fibroglandular density. There are no dominant masses, suspicious microcalcifications, or architectural distortion. IMPRESSION: No mammographic evidence of malignancy. Recommend routine screening. BI-RADS category 1: Negative. The images were reviewed with computer aided detection. Patient information is entered into the reminder system with a target due date for the next screening mammogram. Mammography is the most sensitive method for finding small breast cancers, but it does not detect them all and is not a substitute for careful clinical examination. A negative mammogram does not negate a clinically suspicious finding and should not result in delay in biopsying a clinically suspicious abnormality. "Our facility is accredited by the [employer] Mammography [employer]." Electronically signed by: Gregory Benitez MD (09/09/2020 7:18 PM) [id number]
== END ==
LOC: KCIC MAMMO 12:28
PROVIDERS: ATTEND Obstetrics & Gynecology
DX: Z12.31 Encounter for screening mammogram for malignant neoplasm of breast (principal)
CPT/HCPCS: 77067

== ENCOUNTER → 2021-09-10 | Outpatient (CLI) | payer MEDICARE ==
[~2021-09-10] MED LIST changes: -OMEP40CA45 PO; +OMEP40CA7 PO
--- NOTE | 2021-09-10 12:19 | KCIC ---
Bilateral digital screening mammograms: Reason for examination: Routine screening. Comparison is made to previous studies dated back to 06/27/2015. Bilateral mammograms in CC and oblique projections were obtained with 2-D imaging. Interpretation was made with the benefit of CAD. The skin and nipples show no abnormalities. No abnormal axillary lymph nodes are seen. The breast par enchyma shows scattered fatty and fibroglandular density. (Breast density: Category B.) There are no dominant masses, suspicious calcifications or architectural distortion. Benign calcifications are pre sent. Impression: No evidence of malignancy. Recommend routine screening. BI-RAD Category 2: Benign. "Our facility is accredited by the [employer] Mammography Program." This patient's information has been entered into a reminder system for the patient to be notified wit h the results of her examination and a target date for the next mammogram. Electronically signed by: Ladan Mendieta MD (09/10/2021 12:17 PM) [id number]
== END ==
LOC: KCIC MAMMO 11:08
PROVIDERS: ATTEND Family Medicine
DX: Z12.31 Encounter for screening mammogram for malignant neoplasm of breast (principal); R92.1 Mammographic calcification found on diagnostic imaging of breast
CPT/HCPCS: 77067